=== PATIENT | male | born 1995 | race Caucasian/White ===

== ENCOUNTER 2019-11-22 07:43 | Outpatient (CLI) | payer OTHER, SELFPAY ==
--- NOTE | ~2019-11-22 | MR_ITS ---
EXAMINATION: MR brain/brain stem wo con DATE: 11/22/2019 08:59 INDICATION: Paresthesias of skin. TECHNIQUE: Magnetic resonance imaging (MRI) of the brain and brainstem was performed without intraven ous contrast. Sequences included sagittal and axial T1-weighted FSE, axial diffusion-weighted FS EPI, axial T2*-weighted GRE, axial T2-weighted FLAIR Propeller, and axial T2-weighted Propeller. Apparent diffusion coefficient (ADC) maps were created. COMPARISON: None. 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 There is no intracranial hemorrhage, acute infarction, or abnormal intracranial mass lesion. The ventricles are normal in size. There is m ild mucosal thickening in the ethmoid sinuses. The orbits are normal. The mastoid air cells are chepe l. IMPRESSION: 1. No etiology for the patient's symptoms. Reviewed, dictated and finalized at location A.
== END 2019-11-22 07:44 | disposition home or self-care (01) ==
LOC: ANHIMG 07:53
PROVIDERS: PCP Internal Medicine; Visit Provider Psychiatry & Neurology Neurology
DX: R20.2 Paresthesia of skin (principal)
CPT/HCPCS: 70551

== ENCOUNTER 2020-02-14 10:36 | Outpatient (CLI) | payer OTHER, SELFPAY ==
--- NOTE | 2020-02-14 12:00 | NEURO_ITS ---
IMPRESSION: # Complains of numbness of left upper and lower extremities with negative MRI of brain. # Mild left Carpal Tunnel Syndrome. # No ulnar neuropathy. # Normal needle/EMG exam. Nerve Conduction Studies Anti Sensory Summary Table Stim Site NR Peak (ms) P-T Amp (?V) Site1 Site2 Delta-P (ms) Dist (cm) Nico (m/s) Left Median Anti Sensory (2-3nd Digit) Wrist 2.6 73.2 Wrist 2-3nd Digit 2.6 14.0 54 Wrist 2.7 53.3 Wrist 2-3nd Digit 2.6 14.0 54 Right Median Anti Sensory (2-3nd Digit) Wrist 2.4 69.0 Wrist 2-3nd Digit 2.4 14.0 58 Wrist 2.4 51.5 Wrist 2-3nd Digit 2.4 14.0 58 Left Radial Anti Sensory (Base 1st Digit) Wrist 1.7 9.5 Wrist Base 1st Digit 1.7 0.0 Right Radial Anti Sensory (Base 1st Digit) Wrist 1.9 13.8 Wrist Base 1st Digit 1.9 0.0 Left Ulnar Anti Sensory (5th Digit) Wrist 2.5 39.6 Wrist 5th Digit 2.5 14.0 56 Right Ulnar Anti Sensory (5th Digit) Wrist 2.1 48.6 Wrist 5th Digit 2.1 14.0 67 Motor Summary Table Stim Site NR Onset (ms) O-P Amp (mV) Site1 Site2 Delta-0 (ms) Dist (cm) Nico (m/s) Left Median Motor (Abd Poll Brev) Wrist 4.0 1.9 Elbow Wrist 3.8 26.0 68 Elbow 7.8 2.3 Right Median Motor (Abd Poll Brev) Wrist 3.0 4.2 Elbow Wrist 4.0 26.0 65 Elbow 7.0 3.6 Left Ulnar Motor (Abd Dig Minimi) Wrist 2.7 7.9 A Elbow Wrist 4.7 29.0 62 A Elbow 7.4 6.0 Right Ulnar Motor (Abd Dig Minimi) Wrist 2.5 5.3 A Elbow Wrist 4.5 28.0 62 A Elbow 7.0 5.0 F Wave Studies NR F-Lat (ms) L-R F-Lat (ms) Left Median (Mrkrs) (Abd Poll Brev) 24.39 1.29 Right Median (Mrkrs) (Abd Poll Brev) 25.67 1.29 Left Ulnar (Mrkrs) (Abd Dig Min) 26.21 0.06 Right Ulnar (Mrkrs) (Abd Dig Min) 26.27 0.06 EMG Side Muscle Nerve Root Ins Act Fibs Amp Dur Recrt Comment Right 1stDorInt Ulnar C8-T1 Nml Nml Nml Nml Nml Right Ext Indicis Radial (Post Int) C7-8 Nml Nml Nml Nml Nml Right Ext Digitorum Radial (Post Int) C7-8 Nml Nml Nml Nml Nml Right BrachioRad Radial C5-6 Nml Nml Nml Nml Nml Right PronatorTeres Median C6-7 Nml Nml Nml Nml Nml Right Abd Poll Brev Median C8-T1 Nml Nml Nml Nml Nml Left 1stDorInt Ulnar C8-T1 Nml Nml Nml Nml Nml Left Ext Indicis Radial (Post Int) C7-8 Nml Nml Nml Nml Nml Left Ext Digitorum Radial (Post Int) C7-8 Nml Nml Nml Nml Nml Left BrachioRad Radial C5-6 Nml Nml Nml Nml Nml Left PronatorTeres Median C6-7 Nml Nml Nml Nml Nml Left Abd Poll Brev Median C8-T1 Nml Nml Nml Nml Nml MTDD
== END 2020-02-14 10:37 | disposition home or self-care (01) ==
LOC: ANHNEURO 10:37
PROVIDERS: PCP Internal Medicine; Visit Provider Psychiatry & Neurology Neurology
DX: R20.2 Paresthesia of skin (principal); G56.02 Carpal tunnel syndrome, left upper limb
CPT/HCPCS: 95886; 95911